=== PATIENT | female | born 1990 | race Caucasian/White ===

== ENCOUNTER 2021-04-18 00:42 | Emergency (ER) | payer OTHER ==
[2021-04-18 01:23] LABS: BASOPHIL 0.2 % (0-2); EOSINOPHIL 1.4 % (0-5); HCT 42.7 % (37.0-47.0); HGB 14.8 g/dl (12.5-16.0); LYMPHOCYTE 13.7 % (15-48); MCH 33.2 pg (25.0-31.0); MCHC 34.7 g/dL (32.0-36.0); MCV 95.7 fL (78.0-100.0); MONOCYTE 6.1 % (0-12); NEUTROPHIL 78.4 % (41-80); NRBC 0; PLT 281 K/uL (150-400); RBC 4.46 M/uL (4.20-5.40); RDW 12.4 % (11.5-14.0); WBC 8.1 K/uL (4.0-10.5)
[2021-04-18 01:40] LABS: ALBUMIN 3.8 g/dL (3.4-5.0); BILIRUBIN - TOTAL 0.3 mg/dL (0.2-1.0); BUN/CREAT RATIO (CALC) 18.4 RATIO; CREATININE 0.76 mg/dL (0.51-0.95); GLOBULIN (CALCULATION) 3.5 g/dL; POTASSIUM 3.8 mmol/L (3.5-5.1); TOTAL PROTEIN 7.3 g/dL (6.4-8.2)
[2021-04-18 01:42] LABS: BILIRUBIN NEGATIVE (NEGATIVE); BLOOD NEGATIVE Ery/uL (NEGATIVE); CLARITY CLEAR (CLEAR); COLOR YELLOW (YELLOW); GLUCOSE (U) NORMAL (NORMAL); LEUKOCYTES NEGATIVE Leu/uL (NEGATIVE); NITRITE NEGATIVE (NEGATIVE); PROTEIN NEGATIVE (NEGATIVE); SPECIFIC GRAVITY 1.025 (1.001-1.030); UROBILINOGEN 0.2 mg/dL (0.2-1.0); pH 6.5 (5.0-9.0)
[2021-04-18] MEDS ORDERED: PREDNISONE 10MG10 MG PO (03:58)
[2021-04-18] MEDS ORDERED: ZOFRAN4 M1 PO (03:59)
[2021-04-18] MEDS ORDERED: NORCO 5-325 TA1 EACH PO (04:51)
== END 2021-04-18 04:30 | disposition home or self-care (01) ==
LOC: FER 00:42
PROVIDERS: Emergency Medicine
DX: K50.90 Crohn's disease, unspecified, without complications (principal); F17.210 Nicotine dependence, cigarettes, uncomplicated; Z98.890 Other specified postprocedural states
CPT/HCPCS: 36415; 80053; 81003; 83690; 85025; J1170; J2270; J2405; J2930; J7030; Q9967

== ENCOUNTER 2021-05-06 07:09 | Emergency (ER) | payer OTHER ==
[~2021-05-06 07:09] MED LIST: NORCO 5-325 TA1 EACH PO; PREDNISONE 10MG10 MG PO; ZOFRAN4 M1 PO
[2021-05-06 08:35] LABS: BASOPHIL 0.5 % (0-2); EOSINOPHIL 1.8 % (0-5); HCT 39.2 % (37.0-47.0); HGB 13.7 g/dl (12.5-16.0); LYMPHOCYTE 24.2 % (15-48); MCH 33.2 pg (25.0-31.0); MCHC 34.9 g/dL (32.0-36.0); MCV 94.9 fL (78.0-100.0); MONOCYTE 8.5 % (0-12); MPV 10.3 fL (6.0-9.5); NEUTROPHIL 64.7 % (41-80); NRBC 0; PLT 264 K/uL (150-400); RBC 4.13 M/uL (4.20-5.40); RDW 12.1 % (11.5-14.0); WBC 7.8 K/uL (4.0-10.5)
[2021-05-06 08:54] LABS: ALBUMIN 3.7 g/dL (3.4-5.0); BILIRUBIN - TOTAL 0.3 mg/dL (0.2-1.0); BUN/CREAT RATIO (CALC) 14.9 RATIO; CREATININE 0.67 mg/dL (0.51-0.95); GLOBULIN (CALCULATION) 3.3 g/dL
[2021-05-06 10:38] LABS: BILIRUBIN NEGATIVE (NEGATIVE); BLOOD NEGATIVE Ery/uL (NEGATIVE); CLARITY CLEAR (CLEAR); COLOR YELLOW (YELLOW); GLUCOSE (U) NORMAL (NORMAL); LEUKOCYTES NEGATIVE Leu/uL (NEGATIVE); NITRITE NEGATIVE (NEGATIVE); PROTEIN NEGATIVE (NEGATIVE); SPECIFIC GRAVITY 1.015 (1.001-1.030); UROBILINOGEN 0.2 mg/dL (0.2-1.0)
[2021-05-06] MEDS ORDERED: HYDROCODON-ACE1 EAC2 PO (11:46)
[2021-05-06] MEDS ORDERED: PREDNISONE 20MG20 MG PO (11:46)
[2021-05-06] MEDS ORDERED: ONDANSETRON ODT4 MG PO (11:46)
== END 2021-05-06 11:55 | disposition home or self-care (01) ==
LOC: FER 07:09
PROVIDERS: Emergency Medicine
DX: K50.90 Crohn's disease, unspecified, without complications (principal); F17.210 Nicotine dependence, cigarettes, uncomplicated
CPT/HCPCS: 36415; 80053; 81003; 82150; 83690; 85025; 86140; J1885; J2270; J2405; J2930; J7120

== ENCOUNTER 2021-05-23 17:35 | Emergency (ER) | payer OTHER ==
[~2021-05-23 17:35] MED LIST changes: +HYDROCODON-ACE1 EAC2 PO; +ONDANSETRON ODT4 MG PO; +PREDNISONE 20MG20 MG PO
[2021-05-23 19:41] LABS: BASOPHIL 0.2 % (0-2); EOSINOPHIL 0.4 % (0-5); HCT 41.3 % (37.0-47.0); HGB 14.1 g/dl (12.5-16.0); LYMPHOCYTE 10.7 % (15-48); MCHC 34.1 g/dL (32.0-36.0); MCV 96.7 fL (78.0-100.0); MONOCYTE 5.5 % (0-12); MPV 10.6 fL (6.0-9.5); NEUTROPHIL 82.8 % (41-80); NRBC 0; PLT 238 K/uL (150-400); RBC 4.27 M/uL (4.20-5.40); RDW 12.4 % (11.5-14.0); WBC 12.6 K/uL (4.0-10.5)
[2021-05-23 20:09] LABS: BILIRUBIN - TOTAL 0.6 mg/dL (0.2-1.0); BUN/CREAT RATIO (CALC) 13.5 RATIO; CREATININE 0.74 mg/dL (0.51-0.95); GLOBULIN (CALCULATION) 3.4 g/dL; POTASSIUM 3.6 mmol/L (3.5-5.1); TOTAL PROTEIN 7.4 g/dL (6.4-8.2)
== END 2021-05-23 21:50 | disposition home or self-care (01) ==
LOC: FER 17:35
PROVIDERS: Physician Assistant
DX: B34.9 Viral infection, unspecified (principal); F17.210 Nicotine dependence, cigarettes, uncomplicated; Z20.822 Contact with and (suspected) exposure to COVID-19
CPT/HCPCS: 36415; 71045; 80053; 85025; 87880; U0002